=== PATIENT | female | born 1950 | race American Indian/Alaskan Native ===

== ENCOUNTER 2020-12-01 17:45 | Observation (INO) | payer MEDICARE ==
--- NOTE | 2020-12-01 19:15 | Emergency Department Report ---
ED Chest Pain HPI - General Chief Complaint: Chest Pain Stated Complaint: CHEST PAIN PUI?: No Time Seen by Provider: 12/01/20 18:57 Source: patient, EMS ( EMS documentation not available at time of chart dictation ), RN notes reviewed Mode of arrival: Ambulatory Limitations: No Limitations - History of Present Illness Initial Comments: The patient was evaluated in the emergency department for symptoms described in the history of present illness. He/she was evaluated in the context of the global COVID-19 pandemic, which necessitated consideration that the patient might be at risk for infection with the virus that causes COVID-19. Institutional protocols and algorithms that pertain to the evaluation of patients at risk for COVID-19 are in a state of rapid change based on information released by regulatory bodies including the CDC and federal and state organizations. These policies and algorithms were followed during the patient's care in the emergency department. Please note that these policies, procedures and recommendations changed on a rapid basis. Patient is a 70-year-old female. She is not known to myself previously. She is visiting from [place]. She believes that she has a history of obesity, hypert ension, high cholesterol, diabetes, question COPD. She presents to the ER with a complaint of chest pain, shortness of breath, lower extremity swelling. She denies severe headache, she states the chest pain radiates to her neck and to her back, there is no vomiting, there is positive nausea, there is positive shortness of breath, there is lower extremity swelling and cramping. No fevers. Chronic abdominal pain. No diarrhea. No bright red blood per rectum. No recent aspirin consumption. No recent cardiac risk ratification. MD Complaint: chest pain, other -: Sudden, hour(s) Onset: during rest Pain Location: left chest Pain Radiation: back, neck Severity: moderate Quality: aching Consistency: constant Improves With: nothing Worsens With: nothing Context: recent travel Treatments Prior to Arrival: none Aspirin use within the Past 7 Days: (0) No - Related Data Allergies Allergy/AdvReac Type Severity Reaction Status Date / Time erythromycin base Allergy Rash Verified 12/01/20 17:46 Heart Score - HEART Score History: Moderately suspicious EKG: Non-specific Age: > 65 Risk factors: > 3 risk factors or hx of atherosclerotic disease Troponin: < normal limit HEART Score: 6 - Critical Actions Critical Actions: 4-6 pts:12-16.6% risk of adverse cardiac event. Should be admitted ED Review of Systems ROS: Stated complaint: CHEST PAIN Other details as noted in HPI Constitutional: malaise, weakness. denies: fever Eyes: denies: eye discharge ENT: congestion Respiratory: shortness of breath, SOB with exertion, SOB at rest Cardiovascular: chest pain, edema Gastrointestinal: abdominal pain, nausea. denies: vomiting, hematemesis, melena, hematochezia Genitourinary: denies: dysuria Musculoskeletal: myalgia Neurological: weakness Hematological/Lymphatic: denies: easy bleeding ED Past Medical Hx - Past Medical History Previous Medical History?: Yes Hx Hypertension: Yes Hx Asthma: Yes (chronic) - Surgical History Past Surgical History?: Yes Additional Surgical History: right knee, Hysterectomy, T &A - Social History Smoking Status: Never Smoker Substance Use Type: Prescribed ED Physical Exam - General Limitations: No Limitations General appearance: alert, anxious, in distress, obese - Head Head exam: Present: atraumatic, normocephalic - Eye Eye exam: Present: normal appearance, EOMI. Absent: nystagmus - ENT ENT exam: Present: normal exam, normal orophraynx, mucous membranes moist, normal external ear exam - Neck Neck exam: Present: normal inspection, full ROM. Absent: tenderness, mening ismus - Respiratory Respiratory exam: Present: decreased breath sounds. Absent: respiratory distress, wheezes, rales, rhonchi, stridor - Cardiovascular Cardiovascular Exam: Present: normal rhythm, tachycardia, normal heart sounds. Absent: bradycardia, irregular rhythm, systolic murmur, diastolic murmur, rubs, gallop - GI/Abdominal GI/Abdominal exam: Present: soft. Absent: distended, tenderness, guarding, rebound, rigid, pulsatile mass - Extremities Exam Extremities exam: Present: normal inspection, full ROM, pedal edema (2+ edema in the bilateral lower extremities), other (2+ pulses noted in the bilateral upper and lower extremities. There is no palpable cord. negative Homans sign. Muscular compartments are soft. The pelvis is stable.). Absent: calf tenderness - Back Exam Back exam: Present: normal inspection, full ROM. Absent: tenderness, CVA tenderness (R), CVA tenderness (L), paraspinal tenderness, vertebral tenderness - Neurological Exam Neurological exam: Present: alert, oriented X3, normal gait, other (No facial droop. Tongue midline. Extraocular movements intact bilaterally. Facial sensation intact to light touch in V1, V2, V3 distribution bilaterally. 5 and a 5 strength in 4 extremities. Sensation intact to light touch in 4 extremities.). Absent: motor sensory deficit - Psychiatric Psychiatric exam: Present: anxious - Skin Skin exam: Present: warm, dry, intact, normal color. Absent: rash ED Course Vital Signs 12/01/20 12/01/20 12/01/20 17:50 19:39 20:25 Temperature 98.7 F Pulse Rate 127 H 108 H 102 H Respiratory 23 21 Rate Blood Pressure 156/101 Blood Pressure 189/108 [Left] Blood Pressure 186/121 [Right] O2 Sat by Pulse 98 100 Oximetry JANINE score - Janine Score Age > 65: (1) Yes Aspirin use within the Past 7 Days: (0) No 3 or more CAD Risk Factors: (1) Yes 2 or more Angina events in past 24 hrs: (0) No Known CAD with more than 50% Stenosis: (0) No Elevated Cardiac Markers: (0) No ST Deviation Greater than 0.5mm: (0) No JANINE Score: 2 ED Medical Decision Making - Lab Data Result diagrams: 12/01/20 19:00 12/01/20 19:00 Vital Signs 12/01/20 12/01/20 12/01/20 17:50 19:39 20:25 Temperature 98.7 F Pulse Rate 127 H 108 H 102 H Respiratory 23 21 Rate Blood Pressure 156/101 Blood Pressure 189/108 [Left] Blood Pressure 186/121 [Right] O2 Sat by Pulse 98 100 Oximetry Lab Results 12/01/20 12/01/20 12/01/20 Range/Units 19:00 19:00 19:00 WBC 6.0 (4.5-11.0) K/mm3 RBC 4.24 (3.65-5.03) M/mm3 Hgb 13.8 (10.1-14.3) gm/dl Hct 42.1 (30.3-42.9) % MCV 99 H (79-97) fl MCH 33 H (28-32) pg MCHC 33 (30-34) % RDW 13.9 (13.2-15.2) % Plt Count 226 (140-440) K/mm3 Lymph % (Auto) 23.7 (13.4-35.0) % Story % (Auto) 11.3 H (0.0-7.3) % Eos % (Auto) 7.1 H (0.0-4.3) % Baso % (Auto) 0.4 (0.0-1.8) % Lymph # (Auto) 1.4 (1.2-5.4) K/mm3 Story # (Auto) 0.7 (0.0-0.8) K/mm3 Eos # (Auto) 0.4 (0.0-0.4) K/mm3 Baso # (Auto) 0.0 (0.0-0.1) K/mm3 Seg Neutrophils % 57.5 (40.0-70.0) % Seg Neutrophils # 3.4 (1.8-7.7) K/mm3 PT 12.5 (12.2-14.9) Sec. INR 0.95 (0.87-1.13) APTT 26.4 (24.2-36.6) Sec. D-Dimer 203.54 (0-234) ng/mlDDU Sodium 142 (137-145) mmol/L Potassium 4.0 (3.6-5.0) mmol/L Chloride 103.3 (98-107) mmol/L Carbon Dioxide 26 (22-30) mmol/L Anion Gap 17 mmol/L BUN 15 (7-17) mg/dL Creatinine 1.0 (0.6-1.2) mg/dL Estimated GFR > 60 ml/min BUN/Creatinine Ratio 15 % Glucose 86 (65-100) mg/dL Calcium 9.9 (8.4-10.2) mg/dL Total Bilirubin 0.50 (0.1-1.2) mg/dL AST 14 (5-40) units/L ALT 6 L (7-56) units/L Alkaline Phosphatase 89 (35-129) units/L Troponin T < 0.010 (0.00-0.029) ng/mL Total Protein 7.7 (6.3-8.2) g/dL Albumin 4.3 (3.9-5) g/dL Albumin/Globulin Ratio 1.3 % - EKG Data -: EKG Interpreted by Tn EKG shows normal: sinus rhythm Rate: normal, tachycardia - EKG Data When compared to previous EKG there are: previous EKG unavailable 12/01/20 20:36 Sinus rhythm, tachycardia, 114 bpm, normal axis, left ventricular hypertrophy, QTC 442 ms, incomplete right bundle branch block. Abnormal EKG. Not a STEMI. - Radiology Data Radiology results: pending, report reviewed, image reviewed CHEST 2 VIEWS INDICATION / CLINICAL INFORMATION: Chest Pain. COMPARISON: None available. FINDINGS: SUPPORT DEVICES: None. HEART / MEDIASTINUM: No significant abnormality. LUNGS / PLEURA: Small pleural parenchymal opacity left lower lobe appears to be anterior. No pneumothorax. No confluent infiltrates. ADDITIONAL FINDINGS: No significant additional findings. IMPRESSION: 1. Small left pleural effusion versus scarring. 2. No confluent infiltrate. Signer Name: Román Baker MD Signed: 12/01/2020 6:36 PM Workstation Name: [id number] - Medical Decision Making Differential diagnosis, including but not limited to: Acute coronary syndrome, pneumonia, pulmonary embolism, congestive heart failure, pericarditis, myocarditis, GERD, gastritis, hiatal hernia, pulmonary hypertension, right-sided heart failure Assessment and plan: 70-year-old female, who is tachycardic, fairly hypertensive, with multiple cardiovascular risk factors, no recent cardiac risk ratification, with chest pain and shortness of breath, negative D-dimer, improving tachycardia, not hypoxic, moderate risk for major adverse cardiac event, with lower extremity edema. Suspect component of right-sided cardiac dysfunction and pulmonary hypertension. We will treat her pain aggressively with aspirin, nitroglycerin, and complementary therapies. We will administer Lasix. D-dimer is negative. We have recommended admission to the medical service for cardiac risk ratification, and further evaluation and management. Patient is amenable to this plan of care. Hospital physician, , to admit to the internal medicine service. Critical care attestation.: If time is entered above; I have spent that time in minutes in the direct care of this critically ill patient, excluding procedure time. ED Disposition Clinical Impression: Acute chest pain, Acute dyspnea, Lower extremity edema Disposition: OP ADMIT IP TO THIS HOSP Is pt being admited?: Yes Does the pt Need Aspirin: No Condition: Good Instructions: Chest Pain (ED) Referrals: PRIMARY CARE, [Primary Care Provider] - 3-5 Days
[2020-12-01] MEDS ORDERED: FAMOTIDINE 20 MG TAB PO ONE (19:40)
[2020-12-01] MEDS ORDERED: ACETAMINOPHEN 500 MG TAB PO ONE (19:40)
[2020-12-01] MEDS ORDERED: NITROGLYCERIN 0.4 MG TAB SUBL SL PRN (19:40)
--- NOTE | 2020-12-01 19:41 | XRay Report ---
CHEST 2 VIEWS INDICATION / CLINICAL INFORMATION: Chest Pain. COMPARISON: None available. FINDINGS: SUPPORT DEVICES: None. HEART / MEDIASTINUM: No significant abnormality. LUNGS / PLEURA: Small pleural parenchymal opacity left lower lobe appears to be anterior. No pneumoth orax. No confluent infiltrates. ADDITIONAL FINDINGS: No significant additional findings. IMPRESSION: 1. Small left pleural effusion versus scarring. 2. No confluent infiltrate. Signer Name: Román Baker MD Signed: 12/01/2020 7:36 PM Workstation Name: [id number]
[2020-12-01 19:50] LABS: Basophils % (Auto) 0.4 % (0.0-1.8); Eosinophils # (Auto) 0.4 K/mm3 (0.0-0.4); Eosinophils % (Auto) 7.1 % (0.0-4.3); Hematocrit 42.1 % (30.3-42.9); Hemoglobin 13.8 gm/dl (10.1-14.3); Lymphocytes # (Auto) 1.4 K/mm3 (1.2-5.4); Lymphocytes % (Auto) 23.7 % (13.4-35.0); Mean Corpuscular HGB Conc 33 % (30-34); Mean Corpuscular Volume 99 fl (79-97); Monocytes # (Auto) 0.7 K/mm3 (0.0-0.8); Monocytes % (Auto) 11.3 % (0.0-7.3); Platelet Count 226 K/mm3 (140-440); Red Blood Count 4.24 M/mm3 (3.65-5.03); Red Cell Distribution Width 13.9 % (13.2-15.2)
[2020-12-01 19:55] LABS: INR 0.95 (0.87-1.13); Partial Thromboplastin Time 26.4 Sec. (24.2-36.6)
[2020-12-01 20:10] LABS: Alanine Aminotransferase 6 units/L (7-56); Albumin 4.3 g/dL (3.9-5); BUN/Creatinine Ratio 15; Blood Urea Nitrogen 15 mg/dL (7-17); Calcium 9.9 mg/dL (8.4-10.2); Hemolysis Index 8
[2020-12-01] MEDS ORDERED: FUROSEMIDE 40 MG/4 ML INJ IV ONE (20:33)
[2020-12-01] MEDS ORDERED: ASPIRIN 81 MG TAB CHEW PO ONE (20:39)
[2020-12-01] MEDS ORDERED: ASPIRIN 81 MG TAB CHEW PO STA (20:44)
[2020-12-01] MEDS ORDERED: ACETAMINOPHEN 325 MG TAB PO PRN (20:44)
--- NOTE | 2020-12-01 20:52 | History and Physical Report ---
History of Present Illness Date of examination: 12/01/20 Chief complaint: Chest pain shortness of breath History of present illness: 70 years old female with past medical history of diabetes COPD and high cholesterol was brought to the hospital because of chest pain, shortness of breath and lower extremity swelling. The chest pain is 5/10 radiated to the neck and to the back. Patient also complained of mild nausea and shortness of breath and lower extremity swelling and cramping. No fever no abdominal pain no diarrhea. In the ER initial cardiac enzyme is negative troponin is 0.010 and patient found to have acute CHF exacerbation Past History Past Medical History: COPD, diabetes, heart failure Medications and Allergies Allergies Allergy/AdvReac Type Severity Reaction Status Date / Time erythromycin base Allergy Rash Verified 12/01/20 17:46 Active Meds: Active Medications Nitroglycerin (Nitroglycerin 0.4 Mg Tab Subl) 0.4 mg SL .Q5MIN PRN PRN Reason: Chest Pain Last Admin: 12/01/20 20:25 Dose: 0.4 mg Documented by: Review of Systems Constitutional: weight gain Cardiovascular: chest pain, orthopnea, shortness of breath Respiratory: shortness of breath, dyspnea on exertion Exam - Constitutional Vitals: Temp Pulse Resp BP Pulse Ox 98.7 F 102 H 21 156/101 100 12/01/20 17:50 12/01/20 20:25 12/01/20 19:39 12/01/20 20:25 12/01/20 19:39 General appearance: Present: no acute distress - EENT Eyes: Present: PERRL ENT: hearing intact, clear oral mucosa - Neck Neck: Present: supple, normal ROM - Respiratory Respiratory effort: normal Respiratory: bilateral: rales - Cardiovascular Rhythm: regular Heart Sounds: Present: S1 & S2. Absent: rub, click - Extremities Extremities: pulses symmetrical, No edema Peripheral Pulses: within normal limits - Abdominal General gastrointestinal: Present: soft, non-tender, non-distended, normal bowel sounds Female genitourinary: Present: normal - Integumentary Integumentary: Present: clear, warm, dry - Musculoskeletal Musculoskeletal: gait normal, strength equal bilaterally - Psychiatric Psychiatric: appropriate mood/affect, intact judgment & insight - Neurologic Neurologic: CNII-XII intact, moves all extremities HEART Score - HEART Score EKG: Non-specific Age: > 65 Risk factors: > 3 risk factors or hx of atherosclerotic disease Troponin: Troponin T < 0.010 ng/mL (0.00-0.029) 12/01/20 19:00 Troponin: < normal limit - Critical Actions Critical Actions: 4-6 pts:12-16.6% risk of adverse cardiac event. Should be admitted Results - Labs CBC & Chem 7: 12/01/20 19:00 12/01/20 19:00 Labs: Laboratory Last Values WBC 6.0 K/mm3 (4.5-11.0) 12/01/20 19:00 RBC 4.24 M/mm3 (3.65-5.03) 12/01/20 19:00 Hgb 13.8 gm/dl (10.1-14.3) 12/01/20 19:00 Hct 42.1 % (30.3-42.9) 12/01/20 19:00 MCV 99 fl (79-97) H 12/01/20 19:00 MCH 33 pg (28-32) H 12/01/20 19:00 MCHC 33 % (30-34) 12/01/20 19:00 RDW 13.9 % (13.2-15.2) 12/01/20 19:00 Plt Count 226 K/mm3 (140-440) 12/01/20 19:00 Lymph % (Auto) 23.7 % (13.4-35.0) 12/01/20 19:00 Leon % (Auto) 11.3 % (0.0-7.3) H 12/01/20 19:00 Eos % (Auto) 7.1 % (0.0-4.3) H 12/01/20 19:00 Baso % (Auto) 0.4 % (0.0-1.8) 12/01/20 19:00 Lymph # (Auto) 1.4 K/mm3 (1.2-5.4) 12/01/20 19:00 Leon # (Auto) 0.7 K/mm3 (0.0-0.8) 12/01/20 19:00 Eos # (Auto) 0.4 K/mm3 (0.0-0.4) 12/01/20 19:00 Baso # (Auto) 0.0 K/mm3 (0.0-0.1) 12/01/20 19:00 Seg Neutrophils % 57.5 % (40.0-70.0) 12/01/20 19:00 Seg Neutrophils # 3.4 K/mm3 (1.8-7.7) 12/01/20 19:00 PT 12.5 Sec. (12.2-14.9) 12/01/20 19:00 INR 0.95 (0.87-1.13) 12/01/20 19:00 APTT 26.4 Sec. (24.2-36.6) 12/01/20 19:00 D-Dimer 203.54 ng/mlDDU (0-234) 12/01/20 19:00 Sodium 142 mmol/L (137-145) 12/01/20 19:00 Potassium 4.0 mmol/L (3.6-5.0) 12/01/20 19:00 Chloride 103.3 mmol/L (98-107) 12/01/20 19:00 Carbon Dioxide 26 mmol/L (22-30) 12/01/20 19:00 Anion Gap 17 mmol/L 12/01/20 19:00 BUN 15 mg/dL (7-17) 12/01/20 19:00 Creatinine 1.0 mg/dL (0.6-1.2) 12/01/20 19:00 Estimated GFR > 60 ml/min 12/01/20 19:00 BUN/Creatinine Ratio 15 % 12/01/20 19:00 Glucose 86 mg/dL (65-100) 12/01/20 19:00 Calcium 9.9 mg/dL (8.4-10.2) 12/01/20 19:00 Total Bilirubin 0.50 mg/dL (0.1-1.2) 12/01/20 19:00 AST 14 units/L (5-40) 12/01/20 19:00 ALT 6 units/L (7-56) L 12/01/20 19:00 Alkaline Phosphatase 89 units/L (35-129) 12/01/20 19:00 Troponin T < 0.010 ng/mL (0.00-0.029) 12/01/20 19:00 Total Protein 7.7 g/dL (6.3-8.2) 12/01/20 19:00 Albumin 4.3 g/dL (3.9-5) 12/01/20 19:00 Albumin/Globulin Ratio 1.3 % 12/01/20 19:00 - Imaging and Cardiology Chest x-ray: image reviewed Assessment and Plan - Patient Problems (1) Acute chest pain Current Visit: Yes Status: Acute Plan to address problem: Admit the patient to the medical floor telemetry. Put the patient on chest pain pathway. Aspirin 325 mg p.o. daily. Lipitor 40 mg p.o. daily. Do the serial cardiac enzyme. We also do a echocardiogram. Will consult cardiology for further evaluation and treatment. Heparin 5000 units subcu every 8 hours for DVT prophylaxis and Protonix 40 mg p.o. daily for GI prophylaxis (2) Lower extremity edema Current Visit: Yes Status: Acute Plan to address problem: Lasix 40 mg IV every 12 hours. Will maintain and strict input and output. Fluid restriction 1500 cc/day. Daily weight aspirin 325 mg p.o. daily. Lipitor 40 mg p.o. daily. Do the serial cardiac enzyme. We also do a echocardiogram. Will consult cardiology for further evaluation and treatment. (3) CHF (congestive heart failure) Current Visit: Yes Status: Acute Plan to address problem: Oxygen per nasal cannula 3 L/min. Lasix 40 mg IV every 12 hours. Will maintain and strict input and output. Fluid restriction 1500 cc/day. Daily weight aspirin 325 mg p.o. daily. Lipitor 40 mg p.o. daily. Do the serial cardiac enzyme. We also do a echocardiogram. Will consult cardiology for further evaluation and treatment. Heparin 5000 units subcu every 8 hours for DVT prophylaxis and Protonix 40 mg p.o. daily for GI prophylaxis
[2020-12-01] MEDS: PANTOPRAZOLE 40 MG TAB PO SCH (21:30)
[2020-12-01] MEDS: LISINOPRIL 5 MG TAB PO SCH (21:34)
[2020-12-01 21:50] LABS: Hematocrit 39.7 % (30.3-42.9); Hemoglobin 13.2 gm/dl (10.1-14.3); Mean Corpuscular HGB Conc 33 % (30-34); Mean Corpuscular Volume 97 fl (79-97); Platelet Count 218 K/mm3 (140-440); Red Cell Distribution Width 13.7 % (13.2-15.2)
[2020-12-01 21:51] LABS: BUN/Creatinine Ratio 14; Blood Urea Nitrogen 14 mg/dL (7-17); Calcium 9.8 mg/dL (8.4-10.2); Hemolysis Index 24
[2020-12-01 22:19] LABS: RBC Morphology Normal; Total Cells Counted 100
[2020-12-01] MEDS: HEPARIN 5,000 UNIT/1 ML VIAL SUB-Q SCH (23:48)
[2020-12-01] MEDS: MORPHINE 4 MG/1 ML INJ IV PRN (23:49)
--- NOTE | 2020-12-02 00:49 | XRay Report ---
CHEST 2 VIEWS 0005 INDICATION / CLINICAL INFORMATION: swelling in chest COMPARISON: 12/01/2020 1905 FINDINGS: SUPPORT DEVICES: None. HEART / MEDIASTINUM: No significant abnormality. LUNGS / PLEURA: Probable scarring is seen in the left base. No definite pleural effusion is identifie d. No areas of significant infiltrates are seen. No pneumothorax. ADDITIONAL FINDINGS: No significant additional findings. IMPRESSION: No significant acute abnormality Signer Name: Brandt Dias MD Signed: 12/02/2020 12:45 AM Workstation Name: [id number]
--- NOTE | 2020-12-02 02:23 | Cat Scan Report ---
CT HEAD WITHOUT CONTRAST INDICATION: cva TECHNIQUE: All CT scans at this location are performed using CT dose reduction for ALARA by means of automated exposure control. COMPARISON: None available. FINDINGS: BRAIN: No hemorrhage or mass effect are seen. No evidence of acute infarction is noted. White matter microvascular type changes are seen. ORBITS: Normal as visualized. SOFT TISSUES OF HEAD: Normal. CALVARIUM: Normal. VISUALIZED PARANASAL SINUSES AND MASTOID AIR CELLS: Clear. ADDITIONAL FINDINGS: None. IMPRESSION: No acute intracranial abnormality. Signer Name: Brandt Dias MD Signed: 12/02/2020 2:19 AM Workstation Name: [id number]
[2020-12-02] MEDS: MORPHINE 4 MG/1 ML INJ IV PRN ×2 (02:30→04:22)
[2020-12-02] MEDS ORDERED: hydrALAZINE 20 MG/1 ML INJ IV PRN (04:11)
[2020-12-02] MEDS: HEPARIN 5,000 UNIT/1 ML VIAL SUB-Q SCH ×3 (06:04→22:45)
[2020-12-02] MEDS: FUROSEMIDE 40 MG/4 ML INJ IV SCH ×2 (06:04→18:09)
[2020-12-02] MEDS: ONDANSETRON 4 MG/2 ML INJ IV PRN (10:11)
--- NOTE | 2020-12-02 10:33 | Consultation ---
History of Present Illness Consult date: 12/02/20 Requesting physician: WILMAR SINGH Consult reason: congestive heart failure History of present illness: Pt is a 70-year-old AA female, previously unknown to our practice, who presented with complaints of substernal chest tightness radiating to her left shoulder since yesterday afternoon. Pt states she sat down on the side of her bed after taking a bath, when she felt a sudden squeezing sensation in her chest. Pain has been constant since onset. No aggravating or relieving factors. Pt reports pain is associated with SOB. No cough or recent fever/chills. Pt also reports chronic lower extremity edema. At time of exam, pt reports severe nausea as well. Trop neg x 3. ECG reveals no acute ischemic changes. BNP WNL. CXR reveals no acute findings. HEART Score: 5 Past History Past Medical History: hypertension, hyperlipidemia Social history: denies: smoking, alcohol abuse Family history: CAD Medications and Allergies Allergies Allergy/AdvReac Type Severity Reaction Status Date / Time erythromycin base Allergy Rash Verified 12/01/20 17:46 Active Meds: Active Medications Acetaminophen (Acetaminophen 325 Mg Tab) 650 mg PO Q6H PRN PRN Reason: Pain, Mild (1-3) Amlodipine Besylate (Amlodipine 5 Mg Tab) 5 mg PO QDAY [facility] Atorvastatin Calcium (Atorvastatin 40 Mg Tab) 40 mg PO QHS [facility] Last Admin: 12/01/20 21:30 Dose: 40 mg Documented by: Furosemide (Furosemide 40 Mg/4 Ml Inj) 40 mg IV BID@0600,1800 [facility] Last Admin: 12/02/20 06:04 Dose: 40 mg Documented by: Heparin Sodium (Porcine) (Heparin 5,000 Unit/1 Ml Vial) 5,000 unit SUB-Q Q8HR [facility] Last Admin: 12/02/20 06:04 Dose: 5,000 unit Documented by: Hydralazine HCl (Hydralazine 20 Mg/1 Ml Inj) 10 mg IV Q6HR PRN PRN Reason: Hypertension Last Admin: 12/02/20 04:38 Dose: 10 mg Documented by: Lisinopril (Lisinopril 5 Mg Tab) 5 mg PO QDAY [facility] Last Admin: 12/01/20 21:34 Dose: Not Given Documented by: Morphine Sulfate (Morphine 4 Mg/1 Ml Inj) 2 mg IV Q5MIN PRN PRN Reason: Chest Pain Last Admin: 12/02/20 04:22 Dose: 2 mg Documented by: Nitroglycerin (Nitroglycerin 0.4 Mg Tab Subl) 0.4 mg SL .Q5MIN PRN PRN Reason: Chest Pain Last Admin: 12/01/20 20:25 Dose: 0.4 mg Documented by: Ondansetron HCl (Ondansetron 4 Mg/2 Ml Inj) 4 mg IV Q8H PRN PRN Reason: Nausea And Vomiting Last Admin: 12/02/20 10:11 Dose: 4 mg Documented by: Pantoprazole Sodium (Pantoprazole 40 Mg Tab) 40 mg PO QDAY [facility] Last Admin: 12/01/20 21:30 Dose: 40 mg Documented by: Sodium Chloride (Sodium Chloride 0.9% 10 Ml Flush Syringe) 10 ml IV PRN PRN PRN Reason: LINE FLUSH Review of Systems Constitutional: no fever, no chills, no sweats Ears, nose, mouth and throat: no nasal congestion, no sore throat Cardiovascular: chest pain, edema, shortness of breath, no orthopnea, no palpitations, no syncope, no lightheadedness, no dyspnea on exertion Respiratory: shortness of breath, no cough Gastrointestinal: nausea, vomiting, no abdominal pain, no diarrhea, no constipation Genitourinary Female: no pelvic pain, no flank pain, no dysuria Musculoskeletal: no neck stiffness, no neck pain, no myalgias Integumentary: no rash, no wounds Neurological: no head injury, no paralysis, no weakness, no parathesias, no numbness, no tingling, no seizures, no syncope, no vertigo, no headaches Endocrine: no cold intolerance, no heat intolerance, no polydipsia, no polyuria Hematologic/Lymphatic: no easy bruising, no easy bleeding Allergic/Immunologic: no anaphylaxis Physical Examination Last Vital Signs Temp 98.0 F 12/02/20 08:48 Pulse 125 H 12/02/20 08:48 Resp 18 12/02/20 08:48 BP 153/99 12/02/20 08:48 Pulse Ox 99 12/02/20 08:48 General appearance: no acute distress HEENT: Positive: EOMI, Normocephaly, Mucus Membranes Moist Neck: Positive: neck supple, trachea midline. Negative: JVD/HJR Cardiac: Positive: Reg Rate and Rhythm, S1/S2 Lungs: Positive: Decreased Breath Sounds Neuro: Positive: Grossly Intact Abdomen: Positive: Soft Skin: Negative: Rash Musculoskeletal: No Pain Extremities: Present: upper extr. pulses, lower extr. pulses, +1 Edema (BLE) Results 12/01/20 21:10 12/01/20 21:10 Cardiac Enzymes 12/01/20 Range/Units 19:00 AST 14 (5-40) units/L Coagulation 12/01/20 Range/Units 19:00 PT 12.5 (12.2-14.9) Sec. INR 0.95 (0.87-1.13) APTT 26.4 (24.2-36.6) Sec. CBC 12/01/20 12/01/20 Range/Units 19:00 21:10 WBC 6.0 6.2 (4.5-11.0) K/mm3 RBC 4.24 4.10 (3.65-5.03) M/mm3 Hgb 13.8 13.2 (10.1-14.3) gm/dl Hct 42.1 39.7 (30.3-42.9) % Plt Count 226 218 (140-440) K/mm3 Lymph # (Auto) 1.4 Instrument Engineer (1.2-5.4) K/mm3 [place] # (Auto) 0.7 Instrument Engineer (0.0-0.8) K/mm3 Eos # (Auto) 0.4 Instrument Engineer (0.0-0.4) K/mm3 Baso # (Auto) 0.0 Instrument Engineer (0.0-0.1) K/mm3 Comprehensive Metabolic Panel 12/01/20 12/01/20 Range/Units 19:00 21:10 Sodium 142 138 (137-145) mmol/L Potassium 4.0 4.0 (3.6-5.0) mmol/L Chloride 103.3 101.6 (98-107) mmol/L Carbon Dioxide 26 27 (22-30) mmol/L BUN 15 14 (7-17) mg/dL Creatinine 1.0 1.0 (0.6-1.2) mg/dL Glucose 86 90 (65-100) mg/dL Calcium 9.9 9.8 (8.4-10.2) mg/dL AST 14 (5-40) units/L ALT 6 L (7-56) units/L Alkaline Phosphatase 89 (35-129) units/L Total Protein 7.7 (6.3-8.2) g/dL Albumin 4.3 (3.9-5) g/dL - Imaging and Cardiology Echo: pending EKG: report reviewed, image reviewed - EKG Interpretation EKG: no acute changes EKG interpretations - EKG Sinus rhythms and dysrhythmias: sinus tachycardia Assessment and Plan Plan for Lexiscan stress MPI in AM. NPO after midnight. Echo pending. May continue IV Lasix BID for now with strict I/Os. Will likely transition to PO Lasix following stress test in AM. Closely monitor renal indices and electrolytes. Will optimize antihypertensive regimen. Pt seen in conjunction with Dr. Rosas, who agrees with the assessment and plan of care. - Patient Problems (1) Chest pain Current Visit: Yes Status: Acute (2) CHF (congestive heart failure) Current Visit: Yes Status: Chronic Plan to address problem: Unknown EF (3) Accelerated hypertension Current Visit: Yes Status: Acute (4) HLD (hyperlipidemia) Current Visit: Yes Status: Chronic Qualifiers: Hyperlipidemia type: mixed hyperlipidemia Qualified Code(s): E78.2 - Mixed hyperlipidemia
[2020-12-02 10:44] LABS: Alanine Aminotransferase 6 units/L (7-56); Albumin 4.4 g/dL (3.9-5)
--- NOTE | 2020-12-02 10:47 | Cat Scan Report ---
CT ABDOMEN AND PELVIS WITHOUT CONTRAST HISTORY: abdominal pain COMPARISON: None. TECHNIQUE: Axial CT images were obtained through the abdomen and pelvis without IV contrast. Sagittal and coronal reformatted images. All CT scans at this location are performed using CT dose reduction for ALARA by means of automated exposure control. FINDINGS: CT ABDOMEN: Lung Bases: Clear. Liver: No significant abnormality. Biliary: No significant abnormality. Spleen: No significant abnormality. Unenlarged. Pancreas: No significant abnormality. Adrenals: No significant abnormality. Kidneys: No significant abnormality. Lymphatics: No lymphadenopathy. Vasculature: No significant abnormality. Bowel/Peritoneum: There is moderate diverticulosis of the colon. No acute inflammatory changes are ap preciated. No obstruction or obvious mass. The remaining bowel loops are unremarkable. No free fluid, free air or fluid collection. The appendix is not confidently identified. CT PELVIS: : Hysterectomy. The bladder and distal ureters are unremarkable. Osseous Structures: Moderate lumbar spondylosis. No fracture or suspicious bony lesion. Additional Findings: None IMPRESSION: No acute inflammatory process is appreciated. Diverticulosis of the colon. Hysterectomy and assumed appendectomy. Signer Name: Marko Schroeder Jr, MD Signed: 12/02/2020 10:42 AM Workstation Name: [id number]
[2020-12-02 11:05] LABS: Bilirubin,Direct < 0.2 mg/dL (0-0.2)
[2020-12-02] MEDS: amLODIPine 5 MG TAB PO SCH (11:52)
[2020-12-02] MEDS: PANTOPRAZOLE 40 MG TAB PO SCH (11:52)
[2020-12-02] MEDS: METOPROLOL TARTRATE 25 MG TAB PO SCH ×2 (11:53→22:44)
[2020-12-02] MEDS: LISINOPRIL 5 MG TAB PO SCH (11:59)
--- NOTE | 2020-12-02 14:46 | Progress Note ---
Assessment and Plan Assessment and plan: Ruled out acute coronary syndrome -Presented with chest pain with acute onset -Serial EKGs -Serial troponins have been less than 0.10 -Cardiology consulted, appreciate recommendations -12/01 echocardiogram shows left ventricular chamber size normal, global left ventricular wall motion contractility within normal limits, open global left ventricular chamber size normal, global left ventricular wall motion contractility within normal limits, global left ventricular systolic function is normal, global low ventricular systolic function appears hyperdynamic, estimated ejection fraction 65 to 70%, impaired relaxation, normal left atrial chamber size, RVSP is calculated 26 mmHg -12/03 Lexiscan stress test -Chest pain protocol initiated -IV morphine and sublingual nitroglycerin for chest pain as needed Acute congestive heart failure -Presented with chest pain and lower extremity edema -12/01 D-dimer 42 -Serial cardiac enzymes less than 0.010 -Cardiology consulted, appreciate recommendations -12/01 echocardiogram shows left ventricular chamber size normal, global left ventricular wall motion contractility within normal limits, open global left ventricular chamber size normal, global left ventricular wall motion contractility within normal limits, global left ventricular systolic function is normal, global low ventricular systolic function appears hyperdynamic, estimated ejection fraction 65 to 70%, impaired relaxation, normal left atrial chamber size, RVSP is calculated 26 mmHg -Initiated on beta-mark, ANA inhibitor, diuretic -Supportive care Accelerated hypertension -Presented with tachycardia and blood pressure 186/121 -Cardiology initiated the patient on metoprolol, lisinopril, amlodipine -Blood pressure monitoring per protocol -Hydralazine as needed for SBP greater than 160 Diabetes mellitus -SSI -CC cardiac GI soft diet -Accu-Cheks AC at bedtime -Hypoglycemia protocol Migraine -Supportive care -Continue home Imitrex as needed Hyperlipidemia -Continue statin therapy Depression -Denies any suicidal or homicidal ideations at this time -Supportive care -Continue home Wellbutrin DVT prophylaxis -GI and DVT prophylaxis with Lovenox subcu -SCDs to bilateral lower extremities while in bed History Interval history: This is a 62-year-old female with hyperlipidemia, diabetes,depression, hypertension, congestive heart failure, migraines who presented 12/01 with substernal chest tightness radiating to her left shoulder with sudden onset associated with shortness of breath and lower extremity swelling. Her proBNP was within normal limits, troponins were negative x3 and her CXR shows no acute findings. She was admitted to the hospitalist service with consult cardiology for acute CHF exacerbation. This morning patient complains of a knot to her left upper quadrant on her abdomen, nausea and tenderness to palpation therefore a CT abdomen/pelvis and ultrasound of her abdomen was ordered. Cardiology plans to conduct a stress test in the a.m. she had echocardiogram today. Hospitalist Physical - Constitutional Vitals: Temp Pulse Resp BP Pulse Ox 98.0 F 108 H 17 149/96 96 12/02/20 08:48 12/02/20 14:31 12/02/20 14:31 12/02/20 11:53 12/02/20 14:31 General appearance: Present: no acute distress HEART Score - HEART Score EKG: Non-specific Age: > 65 Risk factors: > 3 risk factors or hx of atherosclerotic disease Troponin: Troponin T < 0.010 ng/mL (0.00-0.029) 12/02/20 05:15 Troponin: < normal limit - Critical Actions Critical Actions: 4-6 pts:12-16.6% risk of adverse cardiac event. Should be admitted Results - Labs CBC & Chem 7: 12/01/20 21:10 12/01/20 21:10 Labs: Laboratory Last Values WBC 6.2 K/mm3 (4.5-11.0) 12/01/20 21:10 RBC 4.10 M/mm3 (3.65-5.03) 12/01/20 21:10 Hgb 13.2 gm/dl (10.1-14.3) 12/01/20 21:10 Hct 39.7 % (30.3-42.9) 12/01/20 21:10 MCV 97 fl (79-97) 12/01/20 21:10 MCH 32 pg (28-32) 12/01/20 21:10 MCHC 33 % (30-34) 12/01/20 21:10 RDW 13.7 % (13.2-15.2) 12/01/20 21:10 Plt Count 218 K/mm3 (140-440) 12/01/20 21:10 Lymph % (Auto) [employer] 12/01/20 21:10 Griggs % (Auto) [employer] 12/01/20 21:10 Eos % (Auto) [employer] 12/01/20 21:10 Baso % (Auto) [employer] 12/01/20 21:10 Lymph # (Auto) [employer] 12/01/20 21:10 Griggs # (Auto) [employer] 12/01/20 21:10 Eos # (Auto) [employer] 12/01/20 21:10 Baso # (Auto) [employer] 12/01/20 21:10 Add Manual Diff Complete 12/01/20 21:10 Total Counted 100 12/01/20 21:10 Seg Neutrophils % [employer] 12/01/20 21:10 Seg Neuts % (Manual) 60.0 % (40.0-70.0) 12/01/20 21:10 Lymphocytes % (Manual) 21.0 % (13.4-35.0) 12/01/20 21:10 Monocytes % (Manual) 13.0 % (0.0-7.3) H 12/01/20 21:10 Eosinophils % (Manual) 2.0 % (0.0-4.3) 12/01/20 21:10 Basophils % (Manual) 4.0 % (0.0-1.8) H 12/01/20 21:10 Nucleated RBC % Not Reportable 12/01/20 21:10 Seg Neutrophils # [employer] 12/01/20 21:10 Seg Neutrophils # Man 3.7 K/mm3 (1.8-7.7) 12/01/20 21:10 Band Neutrophils # 0.0 K/mm3 12/01/20 21:10 Lymphocytes # (Manual) 1.3 K/mm3 (1.2-5.4) 12/01/20 21:10 Abs React Lymphs (Man) 0.0 K/mm3 12/01/20 21:10 Monocytes # (Manual) 0.8 K/mm3 (0.0-0.8) 12/01/20 21:10 Eosinophils # (Manual) 0.1 K/mm3 (0.0-0.4) 12/01/20 21:10 Basophils # (Manual) 0.2 K/mm3 (0.0-0.1) H 12/01/20 21:10 Metamyelocytes # 0.0 K/mm3 12/01/20 21:10 Myelocytes # 0.0 K/mm3 12/01/20 21:10 Promyelocytes # 0.0 K/mm3 12/01/20 21:10 Blast Cells # 0.0 K/mm3 12/01/20 21:10 WBC Morphology Not Reportable 12/01/20 21:10 Hypersegmented Neuts Not Reportable 12/01/20 21:10 Hyposegmented Neuts Not Reportable 12/01/20 21:10 Hypogranular Neuts Not Reportable 12/01/20 21:10 Smudge Cells Not Reportable 12/01/20 21:10 Toxic Granulation Not Reportable 12/01/20 21:10 Toxic Vacuolation Not Reportable 12/01/20 21:10 Dohle Bodies Not Reportable 12/01/20 21:10 Pelger-Huet Anomaly Not Reportable 12/01/20 21:10 Dwaine Rods Not Reportable 12/01/20 21:10 Platelet Estimate Not Reportable 12/01/20 21:10 Clumped Platelets Not Reportable 12/01/20 21:10 Plt Clumps, EDTA Not Reportable 12/01/20 21:10 Large Platelets Not Reportable 12/01/20 21:10 Giant Platelets Not Reportable 12/01/20 21:10 Platelet Satelliting Not Reportable 12/01/20 21:10 Plt Morphology Comment Not Reportable 12/01/20 21:10 RBC Morphology Normal 12/01/20 21:10 Dimorphic RBCs Not Reportable 12/01/20 21:10 Polychromasia Not Reportable 12/01/20 21:10 Hypochromasia Not Reportable 12/01/20 21:10 Poikilocytosis Not Reportable 12/01/20 21:10 Anisocytosis Not Reportable 12/01/20 21:10 Microcytosis Not Reportable 12/01/20 21:10 Macrocytosis Not Reportable 12/01/20 21:10 Spherocytes Not Reportable 12/01/20 21:10 Pappenheimer Bodies Not Reportable 12/01/20 21:10 Sickle Cells Not Reportable 12/01/20 21:10 Target Cells Not Reportable 12/01/20 21:10 Tear Drop Cells Not Reportable 12/01/20 21:10 Ovalocytes Not Reportable 12/01/20 21:10 Helmet Cells Not Reportable 12/01/20 21:10 [place] Bodies Not Reportable 12/01/20 21:10 [place] Rings Not Reportable 12/01/20 21:10 Tomer Cells Not Reportable 12/01/20 21:10 Bite Cells Not Reportable 12/01/20 21:10 Crenated Cell Not Reportable 12/01/20 21:10 Elliptocytes Not Reportable 12/01/20 21:10 Acanthocytes (Spur) Not Reportable 12/01/20 21:10 Rouleaux Not Reportable 12/01/20 21:10 Hemoglobin C Crystals Not Reportable 12/01/20 21:10 Schistocytes Not Reportable 12/01/20 21:10 Malaria parasites Not Reportable 12/01/20 21:10 Keith Bodies Not Reportable 12/01/20 21:10 Hem Pathologist Commnt No 12/01/20 21:10 PT 12.5 Sec. (12.2-14.9) 12/01/20 19:00 INR 0.95 (0.87-1.13) 12/01/20 19:00 APTT 26.4 Sec. (24.2-36.6) 12/01/20 19:00 D-Dimer 203.54 ng/mlDDU (0-234) 12/01/20 19:00 Sodium 138 mmol/L (137-145) 12/01/20 21:10 Potassium 4.0 mmol/L (3.6-5.0) 12/01/20 21:10 Chloride 101.6 mmol/L (98-107) 12/01/20 21:10 Carbon Dioxide 27 mmol/L (22-30) 12/01/20 21:10 Anion Gap 13 mmol/L 12/01/20 21:10 BUN 14 mg/dL (7-17) 12/01/20 21:10 Creatinine 1.0 mg/dL (0.6-1.2) 12/01/20 21:10 Estimated GFR > 60 ml/min 12/01/20 21:10 BUN/Creatinine Ratio 14 % 12/01/20 21:10 Glucose 90 mg/dL (65-100) 12/01/20 21:10 Calcium 9.8 mg/dL (8.4-10.2) 12/01/20 21:10 Magnesium 2.20 mg/dL (1.7-2.3) 12/01/20 19:42 Total Bilirubin 0.40 mg/dL (0.1-1.2) 12/02/20 09:45 Direct Bilirubin < 0.2 mg/dL (0-0.2) 12/02/20 09:45 Indirect Bilirubin 0.2 mg/dL 12/02/20 09:45 AST 16 units/L (5-40) 12/02/20 09:45 ALT 6 units/L (7-56) L 12/02/20 09:45 Alkaline Phosphatase 85 units/L (35-129) 12/02/20 09:45 Total Creatine Kinase 83 units/L (30-135) 12/01/20 19:42 Troponin T < 0.010 ng/mL (0.00-0.029) 12/02/20 05:15 NT-Pro-B Natriuret Pep 42.22 pg/mL (0-900) 12/01/20 21:10 Total Protein 8.8 g/dL (6.3-8.2) H 12/02/20 09:45 Albumin 4.4 g/dL (3.9-5) 12/02/20 09:45 Albumin/Globulin Ratio 1.0 % 12/02/20 09:45 Lipase 14 units/L (13-60) 12/02/20 09:45 - Diagnostic Impressions Diagnostic Impressions: Echocardiogram 12/01/20 20:46 Transthoracic Echocardiogram Indication: SOB BP: 122/85 HR: 114 Conclusions *The left ventricular chamber size is normal. *Global left ventricular wall motion and contractility are within normal limits. *Global left ventricular systolic function is normal. *Global left ventriclar systolic function appears hyperdynamic. *The estimated ejection fraction is 65-70%. *Abnormal left ventricular diastolic filling is observed, consistent with impaired relaxation. *The left atrial chamber size is normal. *The right ventricular systolic pressure is calculated at 26 mmHg. Findings Left Ventricle: The left ventricular chamber size is normal. Global left ventricular wall motion and contractility are within normal limits. Global left ventriclar systolic function appears hyperdynamic. The estimated ejection fraction is 65-70%. Abnormal left ventricular diastolic filling is observed, consistent with impaired relaxation. Left Atrium: The left atrial chamber size is normal. Right Ventricle: The right ventricular cavity size is normal. Right Atrium: The right atrial cavity size is normal. Aortic Valve: The aortic valve structure is normal. Mitral Valve: The mitral valve leaflets appear normal. Tricuspid Valve: The tricuspid valve leaflets are normal. There is trace tricuspid regurgitation. The right ventricular systolic pressure is calculated at 26 mmHg. Pulmonic Valve: The pulmonic valve appears normal. There is trace pulmonic regurgitation. Pericardium: There is no pericardial effusion. Aorta: The aorta appears normal. Contrast: Intravenous contrast was used to enhance endocardial border definition. Measurements Chambers 2D Name Value Normal Range IVSd (2D) 0.94 cm (0.6 - 1.1) LVPWd (2D) 1.07 cm (0.6 - 1.1) LVIDd (2D) 4.03 cm (3.7 - 5.6) LVIDs (2D) 2.9 cm (2 - 3.8) LV FS (2D) 28.09 % - EF Teichholz (2D) 54.88 % - Ao root diameter (2D) 2.46 cm (2 - 3.7) Volumes/Mass Name Value Normal Range LA ESV SP 4CH (A/L) 20.02 ml - LA ESV SP 2CH (A/L) 23.82 ml - LA ESV BP (A/L) 22.35 ml - LA ESV BP (A/L) index 10.85 ml/m2 - LA ESV SP 4CH (MOD) 19.42 ml - LA ESV SP 2CH (MOD) 22.84 ml - LA ESV BP (MOD) 21.52 ml - LA ESV BP (MOD) index 10.45 ml/m2 - Aortic Valve Name Value Normal Range AV Vmax 1.33 m/sec - AV VTI 17.53 cm - AV peak gradient 7.1 mmHg - AV mean gradient 3.71 mmHg - LVOT diameter 2 cm - LVOT Vmax 1.09 m/sec - LVOT VTI 16.62 cm - LVOT peak gradient 4.78 mmHg - LVOT mean gradient 3.08 mmHg - SV LVOT 52.32 ml - OMAR (continuity Vmax) 2.58 cm2 - OMAR (continuity VTI) 2.98 cm2 - Tricuspid Valve Name Value Normal Range TR Vmax 2.41 m/sec - TR peak gradient 23 mmHg - RAP 3 mmHg - RVSP 26 mmHg - Pulmonic Valve/Qp:Qs Name Value Normal Range PV Vmax 1.36 m/sec - PV peak gradient 7.45 mmHg - MO end-diastolic Vmax 1.65 m/sec - PV acceleration time 114.18 msec - Kumari/IV: Voiding Method External Female Catheter IV Catheter Type [Right Medial Peripheral IV Port Forearm] Active Medications - Current Medications Current Medications: Generic Name Dose Route Start Last Admin Trade Name Freq PRN Reason Stop Dose Admin Acetaminophen 650 mg 12/01/20 20:44 Acetaminophen 325 Mg Tab PO Q6H PRN Pain, Mild (1-3) Amlodipine Besylate 5 mg 12/02/20 10:00 12/02/20 11:52 Amlodipine 5 Mg Tab PO 5 mg QDAY KRALI Administration Atorvastatin Calcium 40 mg 12/01/20 22:00 12/01/20 21:30 Atorvastatin 40 Mg Tab PO 40 mg QHS KARLI Administration Bupropion HCl 150 mg 12/03/20 10:00 Bupropion Xl 150 Mg Tab PO QDAY [facility] Furosemide 40 mg 12/02/20 06:00 12/02/20 06:04 Furosemide 40 Mg/4 Ml Inj IV 40 mg BID@0600,1800 [facility] Administration Heparin Sodium (Porcine) 5,000 unit 12/01/20 22:00 12/02/20 13:11 Heparin 5,000 Unit/1 Ml Vial SUB-Q 5,000 unit Q8HR [facility] Administration Hydralazine HCl 10 mg 12/02/20 04:11 12/02/20 04:38 Hydralazine 20 Mg/1 Ml Inj IV 10 mg Q6HR PRN Administration Hypertension Lisinopril 10 mg 12/03/20 08:00 Lisinopril 5 Mg Tab PO QDAY [facility] Metoprolol Tartrate 25 mg 12/02/20 12:00 12/02/20 11:53 Metoprolol Tartrate 25 Mg Tab PO 25 mg BID KARLI Administration Morphine Sulfate 2 mg 12/01/20 20:44 12/02/20 04:22 Morphine 4 Mg/1 Ml Inj IV 2 mg Q5MIN PRN Administration Chest Pain Nitroglycerin 0.4 mg 12/01/20 19:40 12/01/20 20:25 Nitroglycerin 0.4 Mg Tab Subl SL 0.4 mg .Q5MIN PRN Administration Chest Pain Ondansetron HCl 4 mg 12/02/20 10:08 12/02/20 10:11 Ondansetron 4 Mg/2 Ml Inj IV 4 mg Q8H PRN Administration Nausea And Vomiting Pantoprazole Sodium 40 mg 12/01/20 21:00 12/02/20 11:52 Pantoprazole 40 Mg Tab PO 40 mg QDAY KARLI Administration Sodium Chloride 10 ml 12/01/20 20:44 Sodium Chloride 0.9% 10 Ml Flush Syringe IV PRN PRN LINE FLUSH Nutrition/Malnutrition Assess - Dietary Evaluation Nutrition/Malnutrition Findings: Nutrition Notes Start: 12/02/20 13:30 Freq: Status: Active Protocol: Document 12/02/20 13:31 (Rec: 12/02/20 13:42 [email or web address]) Nutrition Notes Need for Assessment generated from: hog worker Initial or Follow up Assessment Current Diagnosis COPD,Diabetes,Hypertension, Heart Failure,Hyperlipidemia Current Diet GI soft Labs/Tests Reviewed Pertinent Medications Grisel Enamorado Height 5 ft 6 in Weight 97.069 kg Usual Body Weight 92.72 kg [place] Body Weight (kg) 59.09 BMI 34.5 Intake Prior to Admission Fair Weight Status Obese Subjective/Other Information RM screen for MST and chewing difficulty. Pt reports no appetite for 1 wk and not eating much. Pt reports food tastes bitter. She states she "lives on gas-x" and has hx of GERD. Pt has no pain or issues swallowing. Pt was NPO for breakfast. Pt is open to Ensure Clear and no other ONS at this time. Burn Absent Trauma Absent GI Symptoms Other Energy Intake (non-severe) <75% Estimated Energy Requirement >7 days #1 Nutrition Diagnosis Inadequate oral intake Etiology chronic disease As Evidenced by Signs and Symptoms pt with no appetite for 1 wk Is patient on ventilator? No Is Patient Ambulatory and/or Out of Bed No REE-([facility]-confined to bed) 1826.292 Kcal/Kg value to use for calculation 15 Approximate Energy Requirements Using 1456 kcal/Kg Calculation Used for Recommendations Kcal/kg Additional Notes Protein: 78-94g (1-1.2g/kg AdjBW 78kg) Fluid: 1500 ml or per MD Nutrition Intervention Change Diet Order: Advance as tolerated Add Supplement/Snack (indicate name/kcal Ensure Clear BID /protein ) Provides kCal: 480 Provides Protein (gm) 16 Goal #1 Meet at least 75% of protein and energy needs via PO and ONS intakes Anticipated Discharge Needs: Consistent CHO, Cardiac Follow-Up By: 12/04/20 Additional Comments FU for intakes, ONS tolerance
[2020-12-02] MEDS ORDERED: SUMAtriptan SUCCINATE 50 MG TAB PO PRN (14:47)
[2020-12-02] MEDS ORDERED: DEXTROSE 50% IN WATER (25GM) 50 ML SYRINGE IV PRN (14:55)
[2020-12-02] MEDS: INSULIN LISPRO 100 UNIT/ML VIAL 3 mL SUB-Q SCH ×2 (16:39→22:46)
[2020-12-02] MEDS ORDERED: MONTELUKAST 10 MG TAB PO SCH (22:00)
[2020-12-03] MEDS: FUROSEMIDE 40 MG/4 ML INJ IV SCH (06:15)
[2020-12-03] MEDS: HEPARIN 5,000 UNIT/1 ML VIAL SUB-Q SCH ×2 (06:15→14:34)
[2020-12-03] MEDS: INSULIN LISPRO 100 UNIT/ML VIAL 3 mL SUB-Q SCH ×2 (07:58→12:16)
[2020-12-03] MEDS: LISINOPRIL 5 MG TAB PO SCH ×2 (08:10→12:13)
--- NOTE | 2020-12-03 08:57 | Ultrasound Report ---
ULTRASOUND ABDOMEN, COMPLETE INDICATION / CLINICAL INFORMATION: Abdominal pain; evaluate gallbladder. COMPARISON: CT abdomen/pelvis from the same date. FINDINGS: PANCREAS: No significant abnormality. ABDOMINAL AORTA: No significant abnormality. IVC: No significant abnormality. LIVER: No significant abnormality. The liver measures 13.0 cm in length. GALLBLADDER: Layering echogenic material is seen within the gallbladder lumen. There is no gallbladde r wall thickening or pericholecystic edema. BILE DUCTS: No significant abnormality. Common bile duct measures 3 mm. KIDNEYS: Right: The right kidney measures 9.2 cm in length and is normal in echogenicity. Left: The left kidney appears slightly atrophic and measures 8.8 cm in length. SPLEEN: Not well visualized. FREE FLUID: None. ADDITIONAL FINDINGS: None. IMPRESSION: 1. Gallbladder sludge without sonographic evidence of cholecystitis. Signer Name: Jordi Mtz MD Signed: 12/03/2020 8:52 AM Workstation Name: [id number]
[2020-12-03] MEDS ORDERED: REGADENOSON 0.4 MG/5 ML INJ IV ONE (09:46)
[2020-12-03] MEDS ORDERED: buPROPion XL 150 MG TAB PO SCH (10:00)
[2020-12-03] MEDS: ONDANSETRON 4 MG/2 ML INJ IV PRN ×2 (11:02→14:33)
--- NOTE | 2020-12-03 11:19 | Progress Note ---
Assessment and Plan tte reviewed - EF 65-70%, impaired relaxation. S/p lexiscan MPI stress test today which was negative. Optimize BPs - increase norvasc and lopressor dosages, cont lisinopril. Cont ASA 81 and statin. D/c diuretics. Currently stable cardiac status. Chest pain resolved. Pt may discharge from cardiology standpoint. Recommend follow up in our office with Dr. Rosas within 2 weeks of discharge ([phone]). Pt seen in conjunction with Dr. Rosas, who agrees with the assessment and plan of care. - Patient Problems (1) Chest pain Current Visit: Yes Status: Resolved (2) Accelerated hypertension Current Visit: Yes Status: Acute (3) Diabetes Current Visit: Yes Status: Chronic (4) HLD (hyperlipidemia) Current Visit: Yes Status: Chronic Qualifiers: Hyperlipidemia type: mixed hyperlipidemia Qualified Code(s): E78.2 - Mixed hyperlipidemia Subjective Date of service: 12/03/20 Principal diagnosis: HTN; cp Interval history: for stress test today, no current cardiac complaints. tele reviewed - in SR. Objective Last Vital Signs Temp 98.4 F 12/03/20 03:28 Pulse 104 H 12/03/20 12:13 Resp 17 12/03/20 07:00 BP 148/94 12/03/20 12:13 Pulse Ox 97 12/03/20 07:00 - Physical Examination General: No Apparent Distress HEENT: Positive: EOMI, Normocephaly, Mucus Membranes Moist Neck: Positive: neck supple, trachea midline. Negative: JVD/HJR Cardiac: Positive: Reg Rate and Rhythm, S1/S2 Lungs: Positive: clear to auscultation Neuro: Positive: Grossly Intact Abdomen: Positive: Soft Skin: Negative: Rash Musculoskeletal: No Pain Extremities: Present: upper extr. pulses, lower extr. pulses. Absent: edema - Imaging and Cardiology EKG: report reviewed, image reviewed Echo: report reviewed - Telemetry EKG Rhythm: Sinus Rhythm - EKG Sinus rhythms and dysrhythmias: sinus tachycardia
[2020-12-03] MEDS ORDERED: PANTOPRAZOLE 40 MG TAB PO SCH (12:00)
[2020-12-03] MEDS ORDERED: amLODIPine 10 MG TAB PO SCH (12:11)
[2020-12-03] MEDS: amLODIPine 5 MG TAB PO SCH (12:12)
[2020-12-03] MEDS: METOPROLOL TARTRATE 25 MG TAB PO SCH (12:13)
--- NOTE | 2020-12-03 12:13 | Treadmill Report ---
PHARMACOLOGICAL MYOCARDIAL PERFUSION IMAGING REPORT This being performed on a 70-year-old female with history of chest pain, abdominal pain, nausea, vomiting and was noted to have hypertensive emergency with a diastolic blood pressure of 121 mmHg at the time of presentation, being evaluated for chest pain. The patient underwent pharmacological stress test using IV regadenoson. Baseline EKG showed sinus rhythm with minor nonspecific ST-T changes. The patient received 0.4 mg of IV regadenoson injection. Post vasodilation ,EKG showed [address] depressions in the inferolateral leads, which persisted. However, the patient did not have any chest pain. Pharmacological resting images with technetium 99m sestamibi showed normal perfusion. Post-vasodilation also there is normal myocardial perfusion noted. Transient ischemic dilation ratio was found to be 1.33. The patient's post-stress gating images were performed and this showed end-diastolic volume to be 67 mL and end-systolic volume of 27 with a stroke volume of 39 mL. Ejection fraction was felt to be 59%. Normal wall motion noted. FINAL IMPRESSION: 1. The patient tolerated IV regadenoson well except for nausea. 2. Ischemic ST-T changes noted, but no associated chest pain noted,only developed nausea. 3. Myocardial perfusion was normal without any significant perfusion defects. Normal left ventricular systolic function noted. Transient ischemic dilation ratio is 1.33 that is abnormal, significance of this is not clear. Overall, this appears to be a low-risk study. Correlate clinically. [facility]# [id number] CHARLIE/RAISSA LEVIN
--- NOTE | 2020-12-03 12:27 | Discharge Summary ---
Providers - Providers Date of Admission: 12/01/20 20:39 Date of discharge: 12/03/20 Attending physician: ANGEL MACKEY MD 12/01/20 Consult to Cardiac Rehabilitation [CONS] Routine Reason For Exam: Phase I 12/01/20 20:44 Consult to Cardiology [CONS] Routine Consulting Provider: SHEKHAR NELSON Reason For Exam: chf 12/02/20 14:55 Consult to Dietitian/Nutrition [CONS] Routine Physician Instructions: Reason For Exam: Reason for Consult: Diet education Primary care physician: JUNIOR AUTOMATION ENGINEER Hospitalization Condition: Stable Hospital course: This is a 62-year-old female with hyperlipidemia, diabetes,depression, hypertension, congestive heart failure, migraines who presented 12/01 with substernal chest tightness radiating to her left shoulder with sudden onset associated with shortness of breath and lower extremity swelling. Her proBNP was within normal limits, troponins were negative x3 and her CXR shows no acute findings. She was admitted to the hospitalist service with consult cardiology for acute CHF exacerbation. During her stay patient complained of a knot to her left upper abdomen, nausea and tenderness to palpation therefore CT abdomen/pelvis and abdominal ultrasound were obtained which showed no acute process. Patient had an echocardiogram which showed ejection fraction of 65 to 70% with impaired relaxation. She had a Lexiscan MPI stress test which was negative for ischemia. Patient will need to follow-up with her primary care physician and cardiology within 1 to 2 weeks of discharge. Patient will need to continue her current cardiac regimen. ACS, ruled out -Presented with chest pain with acute onset -ACS, ruled out -Serial EKGs -Serial troponins have been less than 0.10 -Cardiology consulted, appreciate recommendations -12/01 echocardiogram shows estimated ejection fraction 65 to 70%, impaired relaxation, normal left atrial chamber size, RVSP is calculated 26 mmHg -12/03 Lexiscan MPI stress test negative for ischemia -Continue Norvasc, Lopressor, lisinopril, and 81 mg aspirin and atorvastatin -Recommend follow up in our office with Dr. Dugan within 2 weeks of discharge ([phone]). -12/02 CT head shows no hemorrhage or mass-effect, no evidence of acute infarction with white matter microvascular changes and clear paraspinal and mastoid air cells -12/02 abdominal ultrasound shows gallbladder sludge without sonographic evidence of cholecystitis -12/02 abdomen/pelvis CT shows no acute inflammatory process, diverticulitis, hysterectomy and assumed appendectomy. Acute congestive heart failure -Presented with chest pain and lower extremity edema -12/01 D-dimer 42 -Serial cardiac enzymes less than 0.010 -Cardiology consulted, appreciate recommendations -12/01 echocardiogram shows left ventricular chamber size normal, global left ventricular wall motion contractility within normal limits, open global left ventricular chamber size normal, global left ventricular wall motion cont ractility within normal limits, global left ventricular systolic function is normal, global low ventricular systolic function appears hyperdynamic, estimated ejection fraction 65 to 70%, impaired relaxation, normal left atrial chamber size, RVSP is calculated 26 mmHg -Continue current medical cardiac management -Follow-up with fishing reel assembler in 1 to 2 weeks of discharge Accelerated hypertension -Presented with tachycardia and blood pressure 186/121 -Continue current antihypertensive regimen -Blood pressure monitoring per primary care physician instructions Diabetes mellitus -Continue current antidiabetic regimen -Continue carb controlled cardiac GI soft diet -Accu-Cheks primary care physician instructions Migraine -Supportive care -Continue home Imitrex as needed Hyperlipidemia -Continue statin therapy Depression -Denies any suicidal or homicidal ideations at this time -Supportive care -Continue home Wellbutrin Disposition: TO HOME OR SELFCARE Time spent for discharge: 35 Core Measure Documentation - Palliative Care Palliative Care/ Comfort Measures: Not Applicable - Core Measures Any of the following diagnoses?: heart failure - Heart Failure Discharge Requirements ANA/ARB for LVSD if EF <40%: Not Applicable Beta mark at discharge: Yes Exam - Constitutional Vitals: Temp Pulse Resp BP Pulse Ox 98.4 F 104 H 17 148/94 97 12/03/20 03:28 12/03/20 12:13 12/03/20 07:00 12/03/20 12:13 12/03/20 07:00 General appearance: Present: no acute distress - EENT Eyes: Present: PERRL, EOM intact ENT: hearing intact, clear oral mucosa, dentition normal - Neck Neck: Present: normal ROM - Respiratory Respiratory effort: normal Respiratory: bilateral: CTA - Cardiovascular Rhythm: regular Heart Sounds: Present: S1 & S2. Absent: systolic murmur, diastolic murmur - Extremities Extremities: no ischemia, pulses intact, pulses symmetrical, No edema, normal temperature, normal color, Full ROM Peripheral Pulses: within normal limits - Abdominal General gastrointestinal: Present: soft, non-tender, non-distended, normal bowel sounds - Integumentary Integumentary: Present: clear, warm, dry - Musculoskeletal Musculoskeletal: strength equal bilaterally - Psychiatric Psychiatric: appropriate mood/affect, cooperative - Neurologic Neurologic: CNII-XII intact, no focal deficits, moves all extremities - Allied Health Allied health notes reviewed: nursing Plan Activity: advance as tolerated Diet: low fat, low cholesterol, low salt, diabetic, advance as tolerated Special Instructions: record daily BP diary, record blood sugar diary Additional Instructions: Present to your nearest emergency department contact primary care physician if you experience worsening symptoms. He will need to follow-up with your primary care physician and cardiology within 1 to 2 weeks of discharge. Follow up with: PRIMARY MD KYRIE [Primary Care Provider] - 3-5 Days NICOLÁS DUGAN MD [Staff Physician] - 7 Days Prescriptions: AtorvaSTATin [Lipitor] 40 mg PO QHS #30 tablet amLODIPine 10 mg PO QDAY #30 tablet Aspirin [Aspirin BABY CHEW TAB] 81 mg PO QDAY #30 tab.chew Metoprolol [Lopressor TAB] 50 mg PO BID #60 tablet Nitroglycerin [Nitrostat] 0.4 mg SL .Q5MIN PRN #14 tablet PRN Reason: Chest Pain Pantoprazole [Protonix TAB] 40 mg PO QDAC #30 tablet lisinopriL [Zestril TAB] 10 mg PO QDAY #30 tablet
[2020-12-03] MEDS ORDERED: amLODIPine 5 MG TAB PO ONE (13:00)
[2020-12-03] MEDS ORDERED: METOPROLOL TARTRATE 25 MG TAB PO ONE (13:30)
[2020-12-03] MEDS ORDERED: oxyCODONE /ACETAMINOPHEN 5-325MG TAB PO SCH (14:30)
[2020-12-03 14:34] VITALS: BP 116/67
[2020-12-03] MEDS ORDERED: METOPROLOL TARTRATE 50 MG TAB PO SCH (22:00)
[2020-12-04] MEDS ORDERED: amLODIPine 10 MG TAB PO SCH (10:00)
[2020-12-04] MEDS ORDERED: ASPIRIN 81 MG TAB CHEW PO SCH (10:00)
== END 2020-12-03 15:10 | disposition home or self-care (01) ==
LOC: ED 17:45 → 4A 20:39
PROVIDERS: ADMIT Hospitalist; ATTEND Internal Medicine
DX: I11.0 Hypertensive heart disease with heart failure (principal); I50.9 Heart failure, unspecified; R60.0 Localized edema; R06.00 Dyspnea, unspecified; J44.9 Chronic obstructive pulmonary disease, unspecified; E11.9 Type 2 diabetes mellitus without complications; E78.00 Pure hypercholesterolemia, unspecified; E78.5 Hyperlipidemia, unspecified; F32.9 Major depressive disorder, single episode, unspecified; G43.909 Migraine, unspecified, not intractable, without status migrainosus; R10.9 Unspecified abdominal pain
CPT/HCPCS: 36415; 70450; 71046; 74176; 76700; 78452; 80053; 80076; 82550; 82962; 83690; 83735; 83880; 84484; 85007; 85025; 85379; 85610; 85730; 93005; 93017; 93306; 96372; 96374; 96375; 96376; A9270; A9502; G0378; J0360; J1644; J1815; J1940; J2270; J2405; J2785; 80048